=== PATIENT | male | born 1970 | race Caucasian/White ===

== ENCOUNTER 2016-11-10 09:08 | Day surgery (SDC) | payer MEDICARE, MEDICAID ==
[2016-11-10 09:58] LABS: PROTHROMBIN TIME 13.9 SEC (11.4-15.4)
[2016-11-10 09:59] LABS: PARTIAL THROMBOPLASTIN TIME 33.4 SEC (23.5-35.8)
[2016-11-10 12:29] LABS: GLUCOSE,CSF 54 mg/dL (40-70)
[2016-11-10 12:58] LABS: APPEARANCE ALL TUBES CLEAR; RBC AVERAGE 12.5; RBC DILUENT USED NONE USED; RBC SIDE 1 13; RBC SIDE 2 12
[2016-11-10 12:59] LABS: RBC DILUTION FACTOR 1; TOTAL RBC SQUARES COUNTED 225; WHITE BLOOD CELL,CSF 1 /uL (0-5)
--- NOTE | 2016-11-10 13:40 | RADIOLOGY REPORT (SQ) ---
EXAM DESCRIPTION: LUMBAR PUNCTURE; FLUORO/NEEDLE PLACEMENT/SPINE COMPLETED DATE/TIME: 11/10/2016 11:53 am REASON FOR STUDY: [place] G35 MULTIPLE SCLEROSIS Z79.01 MANAGER INVESTMENT (CURRENT) USE OF ANTICOAGULANTS COMPARISON: None. FLUOROSCOPY TIME: 6 seconds 1 digital fluoroscopic image saved to PACS. TECHNIQUE: Fluoroscopic guided lumbar puncture. LIMITATIONS: None. PROCEDURE: After written consent and assessment were obtained, the patient was brought into the fluo roscopy room and placed prone on the table. The patient's lower back was prepped in a sterile fashio n and an entry site was selected under live fluoroscopic guidance. The entry site was anesthetized wi th 6 mL of 1% lidocaine. A 22 gauge spinal needle was advanced through the skin and into the thecal s ac at the right paracentral L2-3 level. After approximately 8 ml was drained, the needle was removed and a sterile bandage was placed of the site. Specimens were sent to the lab for testing. A fluoros copic spot image was saved to PACS confirming level access. FINDINGS: Clear CSF Opening pressure 10 cm of water IMPRESSION: Lumbar puncture under fluoroscopy. No immediate complication. COMMENT: Patient medication list reviewed: Yes- Quality ID# [id number]:Eligible professional attests to doc umenting in the medical record they obtained, updated, or reviewed the patient's current medications. . Quality ID 145: Final reports for procedures using fluoroscopy that document radiation exposure loyda annie, or exposure time and number of fluorographic images (if radiation exposure indices are not avail able) TECHNICAL DOCUMENTATION: JOB ID: [id number] [employer]- All Rights Reserved
--- NOTE | 2016-11-10 13:40 | RADIOLOGY REPORT (SQ) ---
EXAM DESCRIPTION: LUMBAR PUNCTURE; FLUORO/NEEDLE PLACEMENT/SPINE COMPLETED DATE/TIME: 11/10/2016 11:53 am REASON FOR STUDY: [place] G35 MULTIPLE SCLEROSIS Z79.01 CAREER GUIDANCE COUNSELOR (CURRENT) USE OF ANTICOAGULANTS COMPARISON: None. FLUOROSCOPY TIME: 6 seconds 1 digital fluoroscopic image saved to PACS. TECHNIQUE: Fluoroscopic guided lumbar puncture. LIMITATIONS: None. PROCEDURE: After written consent and assessment were obtained, the patient was brought into the fluo roscopy room and placed prone on the table. The patient's lower back was prepped in a sterile fashio n and an entry site was selected under live fluoroscopic guidance. The entry site was anesthetized wi th 6 mL of 1% lidocaine. A 22 gauge spinal needle was advanced through the skin and into the thecal s ac at the right paracentral L2-3 level. After approximately 8 ml was drained, the needle was removed and a sterile bandage was placed of the site. Specimens were sent to the lab for testing. A fluoros copic spot image was saved to PACS confirming level access. FINDINGS: Clear CSF Opening pressure 10 cm of water IMPRESSION: Lumbar puncture under fluoroscopy. No immediate complication. COMMENT: Patient medication list reviewed: Yes- Quality ID# [id number]:Eligible professional attests to doc umenting in the medical record they obtained, updated, or reviewed the patient's current medications. . Quality ID 145: Final reports for procedures using fluoroscopy that document radiation exposure loyda annie, or exposure time and number of fluorographic images (if radiation exposure indices are not avail able) TECHNICAL DOCUMENTATION: JOB ID: [id number] [employer]- All Rights Reserved
[2016-11-10 13:54] VITALS: BP 108/66
[2016-11-12 06:38] LABS: ALBUMIN SERUM 3.7 g/dL (3.5-5.5); CSF IGG INDEX 0.4 (0.0-0.7); IGG SYNTHESIS RATE CSF -3.8 mg/day (-9.9 TO +3.3); IGG/ALBUMIN RATIO CSF 0.09 (0.00-0.25); IMMUNOGLOBULIN G CSF 3.4 mg/dL (0.0-8.6)
== END 2016-11-10 13:45 | disposition home or self-care (01) ==
LOC: RAD 09:08
PROVIDERS: ATTEND Specialist
PROC: 009U3ZX Drainage of Spinal Canal, Percutaneous Approach, Diagnostic (ICD-10-PCS; principal; 2016-11-10)
DX: G35 Multiple sclerosis (principal); Z79.01 Long term (current) use of anticoagulants
CPT/HCPCS: 36415; 62270; 77003; 82784; 82945; 83916; 84157; 85610; 85730; 87070; 87205; 89050

== ENCOUNTER 2017-11-07 20:50 | Emergency (ER) | payer MEDICARE, MEDICAID ==
--- NOTE | 2017-11-07 21:13 | ER Document Report ---
ED General - General Stated Complaint: PSYCH EVAL Time Seen by Provider: 11/07/17 21:01 Mode of Arrival: Medic Information source: Patient, Relative Cannot obtain history due to: Altered mental status Notes: 47-year-old male with history of alcohol abuse, methamphetamine abuse, presents via EMS after his brother found him altered, lying on the ground. Upon arrival there is no family at bedside and patient is unable to provide a history. TRAVEL OUTSIDE OF THE [place] IN LAST 30 DAYS: No - HPI Onset: Just prior to arrival - Related Data Allergies/Adverse Reactions: No Known Allergies Allergy (Verified 11/10/16 09:19) Past Medical History - General Information source: Relative, [facility] Records - Social History Smoking Status: Current Every Day Smoker Frequency of alcohol use: Heavy Drug Abuse: Methamphetamine Lives with: Spouse/Significant other Family History: Reviewed & Not Pertinent Patient has suicidal ideation: No Patient has homicidal ideation: No - Past Medical History Cardiac Medical History: Denies: Hx Coronary Artery Disease, Hx Heart Attack, Hx Hypertension Pulmonary Medical History: Reports: Hx Pneumonia Denies: Hx Asthma, Hx Bronchitis, Hx COPD, Hx Tuberculosis Neurological Medical History: Denies: Hx Cerebrovascular Accident, Hx Seizures Musculoskeltal Medical History: Denies Hx Arthritis Past Surgical History: Reports: Hx Orthopedic Surgery - right hand - Immunizations Immunizations up to date: Yes Hx Diphtheria, Pertussis, Tetanus Vaccination: Yes Review of Systems - Review of Systems -: Yes ROS unobtainable due to patient's medical condition Physical Exam - Vital signs Vitals: Temp Pulse Resp BP Pulse Ox 98.6 F 62 16 105/70 96 11/07/17 21:12 11/07/17 21:12 11/07/17 21:12 11/07/17 21:12 11/07/17 21:12 Interpretation: No: Hypotensive, Tachypneic, Febrile - Notes Notes: PHYSICAL EXAMINATION: GENERAL: Cachectic, somnolent but arousable. Incoherent speech. HEAD: Atraumatic, normocephalic. EYES: Pupils equal round and reactive to light, extraocular movements intact, sclera anicteric, conjunctiva are normal. ENT: Nares patent, oropharynx clear without exudates. Moist mucous membranes. NECK: Normal range of motion, supple without lymphadenopathy LUNGS: Breath sounds clear to auscultation bilaterally and equal. No wheezes rales or rhonchi. HEART: Regular rate and rhythm without murmurs ABDOMEN: Soft, nontender, nondistended abdomen. No guarding, no rebound. No masses appreciated. Musculoskeletal: Normal range of motion, no pitting or edema. No cyanosis. NEUROLOGICAL: GCS 13 PSYCH: Somnolent SKIN: Warm, Dry, normal turgor, no rashes or lesions noted. Course - Re-evaluation Re-evalutation: Laboratory 11/07/17 11/07/17 21:33 21:33 WBC 10.0 RBC 4.53 Hgb 14.0 Hct 39.6 MCV 87 MCH 30.9 MCHC 35.4 RDW 13.2 Plt Count 173 Seg Neutrophils % 75.0 Lymphocytes % 16.9 Monocytes % 7.0 Eosinophils % 0.6 Basophils % 0.5 Absolute Neutrophils 7.5 Absolute Lymphocytes 1.7 Absolute Monocytes 0.7 Absolute Eosinophils 0.1 Absolute Basophils 0.0 Sodium 146.0 H Potassium 3.5 L Chloride 108 H Carbon Dioxide 27 Anion Gap 11 BUN 43 H Creatinine 0.86 Est GFR ( Amer) > 60 Est GFR (Non-Af Amer) > 60 Glucose 116 H Calcium 9.3 Total Bilirubin 1.4 H Direct Bilirubin 0.3 Neonat Total Bilirubin Not Reportable Neonat Direct Bilirubin Not Reportable Neonat Indirect Bili Not Reportable AST 47 ALT 34 Alkaline Phosphatase 65 Creatine Kinase 515 H Total Protein 7.1 Albumin 4.4 Salicylates < 1.0 L Acetaminophen < 10 L Serum Alcohol < [address] 11/07/17 21:25 IMPRESSION: NORMAL BRAIN CT WITHOUT CONTRAST. EVIDENCE OF ACUTE STROKE: NO. 11/07/17 23:09 47-year-old male presents via EMS altered. Initially no family at bedside to provide history but the brother did present later who states that he is concerned for the patient's safety. He states that he knows that the patient has been using meth for 3 days now. He states that his sister found the patient on the ground, altered and with incoherent speech. He states that the patient's drug dealer was recently arrested and the patient has possession of all of his methamphetamine which he has been taking. Brother reports that the patient has been hallucinating. He is states he is afraid for himself and the patient. Patient had recently expressed wanting to "get help". Upon arrival vitals reviewed and within normal limits. Patient is cachectic, unkept. He is somnolent but easily arouses but cannot provide an appropriate history. he rambles starts cursing and falls to sleep. When asked he denies any illicit drug use. He denies suicidal and homicidal ideation. CT of the head was obtained and showed no acute process. CBC is without leukocytosis or anemia. CMP is unremarkable. CK is elevated and patient did receive IV fluids for this. Patient will be cleared for psychiatric evaluation when alert awake and oriented. repeat ck pending. Patient has given permission for us to speak to his brother Kevin Auguste at [phone] 11/08/17 01:54 11/08/17 01:58 11/08/17 02:00 - Vital Signs Vital signs: Temp Pulse Resp BP Pulse Ox 98.6 F 62 16 105/70 96 11/07/17 21:12 11/07/17 21:12 11/07/17 21:12 11/07/17 21:12 11/07/17 21:12 - Laboratory Result Diagrams: 11/07/17 21:33 11/07/17 21:33 Laboratory results interpreted by me: 11/07/17 21:33 Sodium 146.0 H Potassium 3.5 L Chloride 108 H BUN 43 H Glucose 116 H Total Bilirubin 1.4 H Creatine Kinase 515 H Salicylates < 1.0 L Acetaminophen < 10 L - Diagnostic Test Radiology reviewed: Image reviewed, Reports reviewed - EKG Interpretation by Me EKG shows normal: Sinus rhythm Rate: Normal Rhythm: NSR Discharge - Discharge Clinical Impression: Drug abuse, Elevated CK, Hallucination, Hypokalemia, Dehydration Condition: Good Referrals: LOCALMD,NO [Primary Care Provider] - Follow up as needed
[2017-11-07 21:43] LABS: ABSOLUTE EOSINOPHILS # (AUTO) 0.1 10^3/uL (0.0-0.6); ABSOLUTE LYMPHOCYTES (AUTO) 1.7 10^3/uL (0.5-4.7); ABSOLUTE MONOCYTES (AUTO) 0.7 10^3/uL (0.1-1.4); ABSOLUTE NEUT (AUTO) 7.5 10^3/uL (1.7-8.2); BASOPHILS % (AUTO) 0.5 % (0-2); EOSINOPHILS % (AUTO) 0.6 % (0-6); HEMATOCRIT 39.6 % (37.9-51.0); LYMPHOCYTES % (AUTO) 16.9 % (13-45); MEAN CORPUSCULAR HEMOGLOBIN 30.9 pg (27.0-33.4); MEAN CORPUSCULAR HGB CONC 35.4 g/dL (32.0-36.0); MEAN CORPUSCULAR VOLUME 87 fl (80-97); PLATELET COUNT 173 10^3/uL (150-450); RED BLOOD COUNT 4.53 10^6/uL (4.35-5.55); RED CELL DISTRIBUTION WIDTH 13.2 % (11.5-14.0); TOTAL CELLS COUNTED % (AUTO) 100 %
[2017-11-07 22:07] LABS: ALANINE AMINOTRANSFERASE 34 U/L (21-72); ALBUMIN 4.4 g/dL (3.5-5.0); ALKALINE PHOSPHATASE 65 U/L (38-126); ANION GAP 11 (5-19); ASPARTATE AMINO TRANSFERASE 47 U/L (17-59); BILIRUBIN,DIRECT 0.3 mg/dL (0.0-0.4); BILIRUBIN,TOTAL 1.4 mg/dL (0.2-1.3); BLOOD UREA NITROGEN 43 mg/dL (7-20); CALCIUM 9.3 mg/dL (8.4-10.2); CARBON DIOXIDE 27 mmol/L (22-30); CHLORIDE 108 mmol/L (98-107); CREATINE KINASE 515 U/L (55-170); GLUCOSE 116 mg/dL (75-110); POTASSIUM 3.5 mmol/L (3.6-5.0); TOTAL PROTEIN 7.1 g/dL (6.3-8.2)
[2017-11-07 22:11] LABS: ACETAMINOPHEN < 10 ug/mL (10-30); ALCOHOL < 10 mg/dL (NONE DETECTED); SALICYLATE < 1.0 mg/dL (2.0-20.0)
--- NOTE | 2017-11-07 22:11 | RADIOLOGY REPORT (SQ) ---
EXAM DESCRIPTION: CT HEAD WITHOUT COMPLETED DATE/TIME: 11/07/2017 10:02 pm REASON FOR STUDY: fall COMPARISON: None. TECHNIQUE: Axial images acquired through the brain without intravenous contrast. Images reviewed wi th bone, brain and subdural windows. Additional sagittal and coronal reconstructions were generated. Images stored on PACS. All CT scanners at this facility use dose modulation, iterative reconstruction, and/or weight based d osing when appropriate to reduce radiation dose to as low as reasonably achievable (ALARA). [facility]: Dose Right [facility]: CareDose [facility]: Dose Right [facility]: Teradose 4D [facility]: [employer] RADIATION DOSE: CT Rad equipment meets quality standard of care and radiation dose reduction techniq ues were employed. CTDIvol: 53.2 mGy. DLP: 1070 mGy-cm. mGy. LIMITATIONS: None. FINDINGS: VENTRICLES: Normal size and contour. CEREBRUM: No masses. No hemorrhage. No midline shift. No evidence for acute infarction. Normal gra y/white matter differentiation. No areas of low density in the white matter. CEREBELLUM: No masses. No hemorrhage. No alteration of density. No evidence for acute infarction. EXTRAAXIAL SPACES: No fluid collections. No masses. ORBITS AND GLOBE: No intra- or extraconal masses. Normal contour of globe without masses. CALVARIUM: No fracture. PARANASAL SINUSES: No fluid or mucosal thickening. SOFT TISSUES: No mass or hematoma. OTHER: No other significant finding. IMPRESSION: NORMAL BRAIN CT WITHOUT CONTRAST. EVIDENCE OF ACUTE STROKE: NO. COMMENT: Quality ID # [id number]: Final reports with documentation of one or more dose reduction techniques (e.g., Automated exposure control, adjustment of the mA and/or kV according to patient size, use of iterative reconstruction technique) TECHNICAL DOCUMENTATION: JOB ID: [id number] [employer]- All Rights Reserved Reading location - IP/workstation name: [email or web address]
[2017-11-07] MEDS: NORMAL SALINE 1000 ML 1,000 ML IV PRN ×2 (22:36→22:37)
[2017-11-08] MEDS ORDERED: NORMAL SALINE 1000 ML 1,000 ML IV ONE (00:33)
[2017-11-08] MEDS ORDERED: POTASSIUM CHLORIDE 10 MEQ CAPSULE.ER PO ONE (01:53)
[2017-11-08 04:23] LABS: APPEARANCE,URINE CLEAR; BILIRUBIN,URINE NEGATIVE (NEGATIVE); COLOR,URINE YELLOW; GLUCOSE, URINE NEGATIVE (NEGATIVE); KETONES,URINE NEGATIVE (NEGATIVE); LEUKOCYTE ESTERASE,URINE NEGATIVE (NEGATIVE); NITRITE,URINE NEGATIVE (NEGATIVE); PROTEIN,URINE NEGATIVE (NEGATIVE); URINE SPECIFIC GRAVITY 1.023
[2017-11-08 04:46] LABS: URINE BARBITURATES SCREEN NEGATIVE; URINE BENZODIAZEPINES SCREEN UNCONFIRMED POSITIVE; URINE COCAINE SCREEN NEGATIVE; URINE MARIJUANA (THC) SCREEN UNCONFIRMED POSITIVE; URINE METHADONE SCREEN NEGATIVE; URINE PHENCYCLIDINE SCREEN NEGATIVE
--- NOTE | 2017-11-08 07:52 | EKG REPORT ---
SEVERITY:- NORMAL ECG - SINUS RHYTHM : Confirmed by: Darnell Brumfield MD 08-Nov-2017 07:51:16
--- NOTE | 2017-11-08 09:34 | ER Document Report ---
Doctor's Note Notes: 11/08/17 09:32 I saw and evaluated the patient. Vitals stable. Patient has no complaints at this time. No issues over night. Patient denies suicidal or homicidal ideations. No delusions or hallucinations. Patient declines treatment for substance abuse at this time. I will discuss plan of care with behavioral health.
--- NOTE | 2017-11-08 10:29 | PSYCHOLOGICAL NOTE ---
Psych Note - Psych Note Psych Note: Met with Patient with Dr. Page. Patient denied taking any methamphetamine, rather "someone left it at my house and it was in my hand, so I buried it in my backyard and put it down my septic tank" Patient reported he took 3 adderall pills and denied he took any valium in the last few days. He denied being "aggressive" but admitted to "erratic behavior."Patient tended to perseverate on the pain in his left knee and was not very interested in answering directed questions. He reported he was "kicked out of pain management with Dr. Peña because I was short 2 pills" and reportedly was scheduled to see another pain management doctor on the but could not recall who that doctor was. He indicated he received his benzodiazepines from Dr. Henriquez but it was just a few months ago before he closed his office and was given refills. He indicated he last took his valium a few days ago but was now out of his medication. He stated Fadumo Hidalgo is his outpatient provider and prescribes his Adderall and he last saw her some time ago but continues to have medicine which he takes 3 times per day. Review of his [place] Controlled Substance Registry Report reveals he was prescribed Adderall twice per day, 60 pills / 30 day supply on 10/29/2017 and Valium 5 mg 90 pills / 30 day supply on 10/19/2017 by Fadumo Hidalgo. Previous to that date, he was again prescribed Adderall 20 mg 60 pills / 30 day supply on 09/30/2017 by Fadumo Hidalgo but Oxycodone HCL 10 mg 20 pills / 5 day supply on 09/25/[address] Alfredo Gtz, and the valium again by Fadumo Hidalgo on 2017 90 pills/ 30 day supply. Earlier in the year, around July 2017, the Patient received Oxycodone HCL 10 mg 120 pills / 30 day supply going back to 2015. Prior to that the report shows a history of significant opioid abuse with Opana, Oxycodone, Oxymorphone, etc to at least 2013. Patient denied he abused or misused his prescription medications or used illegal drugs. He denied any inpatient psychiatric care and denied a history of suicide or suicide attempts, or inpatient rehabilitation. 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 Brother stated he has a Neurologist that he follows with but still unsure what the disorder is. He has been prescribed Opioids and Benzodiazepines since age 18, and up to 240 pills of Roxycodone per month. Brother reported the Patient has been to drug treatment / rehabilitation at least twice in [place] but unsure. He advised he wants his brother to get help and understands the difficulty in getting someone to treatment when they don't want to go. He stated his brother unequivocally has an opioid and benzo addiction problem and now fears he has a meth problem. He stated he knows his brother was a meth binge because his brother told him his dealer went to [facility] and left his product to him (the patient). Patient was oriented to person, place, time, nad circumstance. Mood was calm and compliant. Affect was blunted. Patient denied suicidal / homicidal ideation , intent or plan. He denied auditory / visual hallucinations and there was no evidence of delusions. Thought processes were organized, linear, and logical. Conversational speech was low in tone, slow in rate, and normal prosody. Intellectual abilities were estimated within the average range. Eye contact was fair. Attention and concentration was fair. Insight, judgment, and impulse control was poor. Diagnoses: 1. Methamphetamine dependence 2. Opioid Dependence 3. Benzodiazepine Dependence Impression / Plan: Patient is recommended for rescind of IVC as he is no longer hallucinating and is in control of his behavior. His mental status has cleared and he is cleared from acute psychiatric services. Patient denied wanting any services from the hospital except pain medication and refused any type of drug treatment or detox referral. He indicated he did not have a drug abuse issue. Patient was provided outpatient drug treatment information despite his denials and the same information was provided to his brother. Patient was also referred back to his outpatient provider, Fadumo Hidalgo for ongoing care and treatment. ED Physician in agreement with recommendation and disposition.
[2017-11-08 13:08] VITALS: BP 104/77
== END 2017-11-08 13:08 | disposition home or self-care (01) ==
LOC: ER 20:50
DX: F11.20 Opioid dependence, uncomplicated (principal); F15.20 Other stimulant dependence, uncomplicated; F13.20 Sedative, hypnotic or anxiolytic dependence, uncomplicated; F10.10 Alcohol abuse, uncomplicated; F17.210 Nicotine dependence, cigarettes, uncomplicated; E86.0 Dehydration; E87.6 Hypokalemia
CPT/HCPCS: 93005; 99285; 96360; 96361; 36415; 80307 ×4; 82550; 85025; 80053; 81001; 70450; 93010; J7030 ×2; A9270

== ENCOUNTER 2018-02-04 12:08 | Emergency (ER) | payer MEDICARE, MEDICAID ==
[2018-02-04 12:17] VITALS: BP 107/71
--- NOTE | 2018-02-04 12:24 | ER Document Report ---
ED Medical Screen (RME) - General Chief Complaint: Testicular Pain Stated Complaint: ABDOMINAL PAIN Time Seen by Provider: 02/04/18 12:19 Notes: 47-year-old male patient long history of drug abuse, chronic pain management now on Suboxone, Valium. Was seen by his PCP for testicular pain and swelling, started doxycycline yesterday. Since the emergency room today for further evaluation and ultrasound. I have greeted and performed a rapid initial assessment of this patient. A comprehensive ED assessment and evaluation of the patient, analysis of test results and completion of the medical decision making process will be conducted by additional ED providers. TRAVEL OUTSIDE OF THE [place] IN LAST 30 DAYS: No - Related Data Allergies/Adverse Reactions: No Known Allergies Allergy (Verified 02/04/18 12:10) Past Medical History - Social History Chew tobacco use (# tins/day): No Frequency of alcohol use: None Drug Abuse: None - Past Medical History Cardiac Medical History: Denies: Hx Coronary Artery Disease, Hx Heart Attack, Hx Hypertension Pulmonary Medical History: Reports: Hx Pneumonia Denies: Hx Asthma, Hx Bronchitis, Hx COPD, Hx Tuberculosis Neurological Medical History: Denies: Hx Cerebrovascular Accident, Hx Seizures Renal/ Medical History: Denies: Hx Peritoneal Dialysis Musculoskeltal Medical History: Denies Hx Arthritis Past Surgical History: Reports: Hx Orthopedic Surgery - right hand - Immunizations Immunizations up to date: Yes Hx Diphtheria, Pertussis, Tetanus Vaccination: Yes Physical Exam - Vital signs Vitals: Temp Pulse Resp BP Pulse Ox 97.8 F 60 18 107/71 97 02/04/18 12:16 02/04/18 12:16 02/04/18 12:16 02/04/18 12:16 02/04/18 12:16 Course - Vital Signs Vital signs: Temp Pulse Resp BP Pulse Ox 97.8 F 60 18 107/71 97 02/04/18 12:16 02/04/18 12:16 02/04/18 12:16 02/04/18 12:16 02/04/18 12:16 Doctor's Discharge - Discharge Referrals: LOCALMD,NO [Primary Care Provider] - Follow up as needed
[2018-02-04] MEDS ORDERED: KETOROLAC TROMETHAMINE INJ/PF 30 MG/1 ML SDV IV ONE (12:43)
[2018-02-04] MEDS ORDERED: ONDANSETRON HCL INJ/PF 4 MG/2 ML SDV IV ONE (12:43)
[2018-02-04] MEDS ORDERED: NORMAL SALINE 1000 ML 1,000 ML IV ONE (12:44)
--- NOTE | 2018-02-04 12:47 | ER Document Report ---
ED GI/ - General Chief Complaint: Testicular Pain Stated Complaint: ABDOMINAL PAIN Time Seen by Provider: 02/04/18 12:19 Mode of Arrival: Ambulatory Information source: Patient Notes: Chief complaint: abdominal pain: History of complain:( obtained from----patient) 47 years old male with a history of drug abuse currently on methadone program as well as smoking cannabis presents today with bilateral scrotal pain as well as right inguinal pain. Been going on for the last 2-3 days more than usual. No injuries. Denies any urethral discharge, denies any fever chills, denies any nausea vomiting. Onset: Gradual Duration: Last 2-3 days Severity: Moderate to severe Quality: Sharp Context: As above Exacerbating factor and relieving factors: Standing and walking REVIEW OF SYSTEMS: CONSTITUTIONAL : Denies fever, chills, or sweats. Denies recent illness. EENT: Denies eye, ear, throat, or mouth pain or symptoms. Denies nasal or sinus congestion or discharge. Denies throat, tongue, or mouth swelling or difficulty swallowing. CARDIOVASCULAR: Denies chest pain. Denies palpitations or racing or irregular heart beat. Denies ankle edema. RESPIRATORY: Denies cough, cold, or chest congestion. Denies shortness of breath, difficulty breathing, or wheezing. GASTROINTESTINAL: Denies distention. Denies nausea, vomiting, or diarrhea. Denies blood in vomitus, stools, or per rectum. Denies black, tarry stools. Denies constipation. GENITOURINARY: Denies difficulty urinating, painful urination, burning, frequency, blood in urine, or discharge. FEMALE GENITOURINARY: Denies vaginal bleeding, heavy or abnormal periods, irregular periods. Denies vaginal discharge or odor. MUSCULOSKELETAL: Denies back or neck pain or stiffness. Denies joint pain or swelling. SKIN: Denies rash, lesions or sores. HEMATOLOGIC : Denies easy bruising or bleeding. LYMPHATIC: Denies swollen, enlarged glands. NEUROLOGICAL: Denies confusion or altered mental status. Denies passing out or loss of consciousness. Denies dizziness or lightheadedness. Denies headache. Denies weakness or paralysis or loss of use of either side. Denies problems with gait or speech. Denies sensory loss, numbness, or tingling. Denies seizures. PSYCHIATRIC: Denies anxiety or stress. Denies depression, suicidal ideation, or homicidal ideation. ALL OTHER SYSTEMS REVIEWED AND NEGATIVE. PHYSICAL EXAMINATION: GENERAL: Well-appearing, well-nourished and in moderate acute distress. HEAD: Atraumatic, normocephalic. EYES: Pupils equal round and reactive to light, extraocular movements intact, conjunctiva are normal. ENT: Nares patent, oropharynx clear without exudates. Moist mucous membranes. NECK: Normal range of motion, supple without lymphadenopathy LUNGS: Breath sounds clear to auscultation bilaterally and equal. No wheezes rales or rhonchi. HEART: Regular rate and rhythm without murmurs ABDOMEN: Soft, nontender, nondistended abdomen. No guarding, no rebound. No masses appreciated. But right inguinal hernia noted which was reducible. Examination of the scrotum-appears normal no erythema noted no swelling. Examination of the testicles. No obvious epididymal tenderness noted but scrotal tenderness which is questionable. Female : deferred Musculoskeletal: Normal range of motion, no pitting or edema. No cyanosis. NEUROLOGICAL: Cranial nerves grossly intact. Normal speech, normal gait. Normal sensory, motor exams PSYCH: Normal mood, normal affect. SKIN: Warm, Dry, normal turgor, no rashes or lesions noted. Dictation was performed using [employer] voice recognition software TRAVEL OUTSIDE OF THE [place] IN LAST 30 DAYS: No - HPI Notes: 02/04/18 12:46 Dictated - Related Data Allergies/Adverse Reactions: No Known Allergies Allergy (Verified 02/04/18 12:10) Past Medical History - Social History Smoking Status: Current Every Day Smoker Chew tobacco use (# tins/day): No Frequency of alcohol use: None Drug Abuse: None Lives with: Family Family History: Reviewed & Not Pertinent Patient has suicidal ideation: No Patient has homicidal ideation: No - Past Medical History Cardiac Medical History: Denies: Hx Coronary Artery Disease, Hx Heart Attack, Hx Hypertension Pulmonary Medical History: Reports: Hx Pneumonia Denies: Hx Asthma, Hx Bronchitis, Hx COPD, Hx Tuberculosis Neurological Medical History: Denies: Hx Cerebrovascular Accident, Hx Seizures Renal/ Medical History: Denies: Hx Peritoneal Dialysis Musculoskeletal Medical History: Denies Hx Arthritis Past Surgical History: Reports: Hx Orthopedic Surgery - right hand - Immunizations Immunizations up to date: Yes Hx Diphtheria, Pertussis, Tetanus Vaccination: Yes Review of Systems - Review of Systems Notes: Dictated Physical Exam - Vital signs Vitals: Temp Pulse Resp BP Pulse Ox 97.8 F 60 18 107/71 97 02/04/18 12:16 02/04/18 12:16 02/04/18 12:16 02/04/18 12:16 02/04/18 12:16 - Notes Notes: Dictated Course - Vital Signs Vital signs: Temp Pulse Resp BP Pulse Ox 97.8 F 60 18 107/71 97 02/04/18 12:16 02/04/18 12:16 02/04/18 12:16 02/04/18 12:16 02/04/18 12:16 - Laboratory Result Diagrams: 02/04/18 13:05 02/04/18 14:20 Laboratory results interpreted by me: 02/04/18 02/04/18 02/04/18 12:26 13:05 14:20 RBC 4.33 L Total Protein 6.1 L Urine Urobilinogen 2.0 H - Diagnostic Test Radiology reviewed: Reports reviewed - 1. Testicular ultrasound reported by radiologist as normal 2. Abdominal x-ray reported by radiologist as normal Discharge - Discharge Clinical Impression: Testicular pain Abdominal pain Qualifiers: Abdominal location: generalized Qualified Code(s): R10.84 - Generalized abdominal pain Condition: Fair Disposition: HOME, SELF-CARE Instructions: Abdominal Pain ([facility]) Prescriptions: Ketorolac Tromethamine [Toradol 10 mg Tablet] 10 mg PO Q6HP PRN #14 tablet PRN Reason: Dicyclomine HCl [Bentyl 10 mg Capsule] 1 cap PO TID #30 cap Lactulose 20 gm PO BID #60 ml Referrals: LOCALMD,NO [NO LOCAL MD] - Follow up as needed
[2018-02-04 12:50] LABS: APPEARANCE,URINE CLEAR; BILIRUBIN,URINE NEGATIVE (NEGATIVE); COLOR,URINE YELLOW; GLUCOSE, URINE NEGATIVE (NEGATIVE); KETONES,URINE NEGATIVE (NEGATIVE); LEUKOCYTE ESTERASE,URINE NEGATIVE (NEGATIVE); NITRITE,URINE NEGATIVE (NEGATIVE); PROTEIN,URINE NEGATIVE (NEGATIVE); URINE SPECIFIC GRAVITY 1.011
[2018-02-04 13:46] LABS: ABSOLUTE EOSINOPHILS # (AUTO) 0.5 10^3/uL (0.0-0.6); ABSOLUTE LYMPHOCYTES (AUTO) 1.5 10^3/uL (0.5-4.7); ABSOLUTE MONOCYTES (AUTO) 0.4 10^3/uL (0.1-1.4); ABSOLUTE NEUT (AUTO) 6.6 10^3/uL (1.7-8.2); BASOPHILS % (AUTO) 0.5 % (0-2); EOSINOPHILS % (AUTO) 5.9 % (0-6); HEMATOCRIT 38.9 % (37.9-51.0); HEMOGLOBIN 13.7 g/dL (13.5-17.0); LYMPHOCYTES % (AUTO) 16.7 % (13-45); MEAN CORPUSCULAR HEMOGLOBIN 31.5 pg (27.0-33.4); MEAN CORPUSCULAR HGB CONC 35.1 g/dL (32.0-36.0); MEAN CORPUSCULAR VOLUME 90 fl (80-97); MONOCYTES % (AUTO) 4.6 % (3-13); PLATELET COUNT 180 10^3/uL (150-450); RED BLOOD COUNT 4.33 10^6/uL (4.35-5.55); RED CELL DISTRIBUTION WIDTH 13.6 % (11.5-14.0); SEGMENTED NEUTROPHILS % (AUTO) 72.3 % (42-78); TOTAL CELLS COUNTED % (AUTO) 100 %; WHITE BLOOD COUNT 9.1 10^3/uL (4.0-10.5)
--- NOTE | 2018-02-04 14:39 | RADIOLOGY REPORT (SQ) ---
EXAM DESCRIPTION: CT ABD/PELVIS WITH IV ONLY COMPLETED DATE/TIME: 02/04/2018 1:45 pm REASON FOR STUDY: Right inguinal hernia rule out strangulation right and left lower abdominal pain. COMPARISON: None. TECHNIQUE: CT scan of the abdomen and pelvis performed using helical scanning technique with dynamic intravenous contrast injection. No oral contrast. Images reviewed with lung, soft tissue, and bone windows. Reconstructed coronal and sagittal MPR images reviewed. Delayed images for evaluation of the urinary system also acquired. All images stored on PACS. All CT scanners at this facility use dose modulation, iterative reconstruction, and/or weight based d osing when appropriate to reduce radiation dose to as low as reasonably achievable (ALARA). [facility]: Dose Right [facility]: CareDose [facility]: Dose Right [facility]: Teradose 4D [facility]: [employer] CONTRAST TYPE AND DOSE: contrast/concentration: Isovue 350.00 mg/ml; Total Contrast Delivered: 80.0 ml; Total Saline Delivered: 68.0 ml RENAL FUNCTION: Not available. RADIATION DOSE: CT Rad equipment meets quality standard of care and radiation dose reduction techniq ues were employed. CTDIvol: 4.9 - 5.4 mGy. DLP: 590 mGy-cm.. LIMITATIONS: None. FINDINGS: LOWER CHEST: Chronic scarring in lung bases. LIVER: No abnormality. SPLEEN: No abnormality. PANCREAS: No abnormality. GALLBLADDER: No abnormality. ADRENAL GLANDS: No abnormality. RIGHT KIDNEY AND URETER: No abnormality. LEFT KIDNEY AND URETER: No abnormality. AORTA AND VESSELS: No abnormality. RETROPERITONEUM: No retroperitoneal adenopathy, hemorrhage or masses. BOWEL AND PERITONEAL CAVITY: Marked constipation. APPENDIX: Normal. PELVIS: Urinary bladder: No abnormality. Prostate and seminal vesicles: No abnormality. ABDOMINAL WALL: No abnormality. BONES: No abnormality. IMPRESSION: NO SIGNIFICANT OR ACUTE FINDING IN THE ABDOMEN OR PELVIS ON CT SCAN WITH IV CONTRAST. TECHNICAL DOCUMENTATION: JOB ID: [id number] Quality ID # [id number]: Final reports with documentation of one or more dose reduction techniques (e.g., Au tomated exposure control, adjustment of the mA and/or kV according to patient size, use of iterative reconstruction technique) 2010 [employer]- All Rights Reserved Reading location - IP/workstation name: [email or web address]
[2018-02-04 14:50] LABS: ALANINE AMINOTRANSFERASE 30 U/L (21-72); ALBUMIN 3.6 g/dL (3.5-5.0); ALKALINE PHOSPHATASE 65 U/L (38-126); ANION GAP 8 (5-19); ASPARTATE AMINO TRANSFERASE 37 U/L (17-59); BILIRUBIN,DIRECT 0.3 mg/dL (0.0-0.4); BILIRUBIN,TOTAL 0.5 mg/dL (0.2-1.3); BLOOD UREA NITROGEN 19 mg/dL (7-20); CALCIUM 8.8 mg/dL (8.4-10.2); CARBON DIOXIDE 28 mmol/L (22-30); CHLORIDE 104 mmol/L (98-107); GLUCOSE 89 mg/dL (75-110); POTASSIUM 4.9 mmol/L (3.6-5.0); SODIUM 139.9 mmol/L (137-145); TOTAL PROTEIN 6.1 g/dL (6.3-8.2)
--- NOTE | 2018-02-04 15:00 | RADIOLOGY REPORT (SQ) ---
EXAM DESCRIPTION: U/S SCROTUM W/DOPPLER COMPLETED DATE/TIME: 02/04/2018 2:45 pm REASON FOR STUDY: Bilateral testicular pain with swelling COMPARISON: None. TECHNIQUE: Static and realtime lei scale imaging of the scrotum and testes. Selected color Doppler and spectral images recorded to document blood flow. LIMITATIONS: None. FINDINGS: RIGHT: TESTICLE: Normal size. Normal echotexture. Normal blood flow. No mass. EPIDIDYMIS: Normal. HYDROCELE OR VARICOCELE: No. HERNIA OR EXTRA-TESTICULAR MASS: No. OTHER: No other significant finding. LEFT: TESTICLE: Normal size. Normal echotexture. Normal blood flow. No mass. EPIDIDYMIS: Normal. HYDROCELE OR VARICOCELE: No. HERNIA OR EXTRA-TESTICULAR MASS: No. OTHER: No other significant finding. IMPRESSION: NORMAL SCROTAL ULTRASOUND. NO EVIDENCE OF TESTICULAR MASS OR TORSION. TECHNICAL DOCUMENTATION: JOB ID: [id number] [employer]- All Rights Reserved Reading location - IP/workstation name: [email or web address]
== END 2018-02-04 15:30 | disposition home or self-care (01) ==
LOC: ER 12:08
DX: N50.812 Left testicular pain (principal); N50.811 Right testicular pain; R10.84 Generalized abdominal pain; R10.31 Right lower quadrant pain; F17.200 Nicotine dependence, unspecified, uncomplicated
CPT/HCPCS: 99284; 96361; 96374; 96375; 36415; 85025; 80053; 81001; 76870; 93976; 74177; J2405; J1885; J7030

== ENCOUNTER 2018-02-10 12:28 | Emergency (ER) | payer MEDICARE, MEDICAID ==
[2018-02-10] MEDS ORDERED: CIPROFLOXACIN HCL/DEXAMETH OTIC DROP 7.5 ML AD ONE (14:08)
[2018-02-10] MEDS ORDERED: OXYCODONE-ACETAMINOPHEN 5-325 MG TABLET PO ONE (14:08)
--- NOTE | 2018-02-10 14:17 | ER Document Report ---
HPI - HPI Pain Level: 5 Notes: Patient is a 47-year-old male who presents with chief complaint of left ear pain over the last 6 days. Patient reports pain and drainage. Denies any trauma Or fever. - CONSTITUTIONAL Constitutional: REPORTS: Fever. DENIES: Chills - EENT EENT: REPORTS: Ear Pain - NEURO Neurology: REPORTS: Headache, Dizzinesss / Vertigo Past Medical History - General Information source: Patient - Social History Smoking Status: Current Every Day Smoker Chew tobacco use (# tins/day): No Frequency of alcohol use: None Drug Abuse: None Family History: Reviewed & Not Pertinent Patient has suicidal ideation: No Patient has homicidal ideation: No - Past Medical History Cardiac Medical History: Denies: Hx Coronary Artery Disease, Hx Heart Attack, Hx Hypertension Pulmonary Medical History: Reports: Hx Pneumonia Denies: Hx Asthma, Hx Bronchitis, Hx COPD, Hx Tuberculosis Neurological Medical History: Denies: Hx Cerebrovascular Accident, Hx Seizures Renal/ Medical History: Denies: Hx Peritoneal Dialysis Musculoskeletal Medical History: Denies Hx Arthritis Past Surgical History: Reports: Hx Orthopedic Surgery - right hand - Immunizations Immunizations up to date: Yes Hx Diphtheria, Pertussis, Tetanus Vaccination: Yes Vertical Provider Document - CONSTITUTIONAL Notes: PHYSICAL EXAMINATION: GENERAL: Well-appearing, well-nourished and in no acute distress. HEAD: Atraumatic, normocephalic. EYES: Pupils equal round extraocular movements intact, conjunctiva are normal. ENT: Nares patent, edema and erythema noted to left ear canal, tympanic membrane intact. Normal right ear exam. NECK: Normal range of motion LUNGS: No respiratory distress Musculoskeletal: Normal range of motion NEUROLOGICAL: Normal speech, normal gait. PSYCH: Normal mood, normal affect. SKIN: Warm, Dry, normal turgor, no rashes or lesions noted. - INFECTION CONTROL TRAVEL OUTSIDE OF THE [place] IN LAST 30 DAYS: No Course - Re-evaluation Re-evalutation: 02/10/18 14:14 Examination consistent with otitis externa. - Vital Signs Vital signs: Temp Pulse Resp BP Pulse Ox 98.3 F 70 16 92/66 L 96 02/10/18 12:55 02/10/18 12:55 02/10/18 12:55 02/10/18 12:55 02/10/18 12:55 Discharge - Discharge Clinical Impression: Otitis externa Qualifiers: Otitis externa type: unspecified type Chronicity: acute Laterality: left Qualified Code(s): H60.502 - Unspecified acute noninfective otitis externa, left ear Condition: Stable Disposition: HOME, SELF-CARE Additional Instructions: OTITIS EXTERNA: You have otitis externa -- an infection of the outer ear canal. This can be very painful. It's sometimes called "swimmer's ear," because it often occurs after prolonged water exposure. Many things, such as earwax and dirt in the ear, can contribute to it. The usual treatment is antibiotic/antiinflammatory ear drops. Occasionally , a wick will be placed in the ear to draw in the medicine. If the infection is severe, an oral antibiotic may be prescribed. Pain medication is often needed. Avoid getting water in the ear. Outer ear infections often take longer to heal than you might expect. Some tenderness and ache in the ear may persist for about two weeks. See your physician if you fail to improve as expected. Call the doctor at once if you develop fever, increasing swelling (particularly if it makes your ear "poke out"), severe headache, stiff neck, or decreased hearing. USE OF EAR DROPS: Your ear drops won't do much good if they don't get all the way in. To help the ear drops penetrate all the way to the ear drum, use the following technique. If you encounter problems of any kind, notify the physician. (1) Lay your head sideways on a pillow. (2) Place the dropper tip just barely inside the ear canal, almost touching the bottom side of the canal. The liquid is tolerated better on the bottom of the canal. (3) Squeeze out the appropriate amount of medicine, and remove the dropper. (4) Grab the back of the ear (just behind the ear canal) between your index finger and thumb. (5) Tug up, then let the ear drop back. Repeat several times. This pumps the medicine down. (6) Wait five minutes, then place a cotton ball in the ear canal to catch and hold the medicine. USING EAR DROPS WITH A WICK: A wick may be placed in your ear. This keeps the medicine in constant contact with the ear canal. You'll need to put fresh medicine into the wick. Follow these instructions. If you encounter problems of any kind, notify the physician. (1) Lay your head sideways on a pillow. (2) Place the dropper tip so it's almost touching the wick. (3) Squeeze out the appropriate amount of medicine. (4) Wait a minute for the medicine to soak in before sitting up. (5) Wipe away any extra medicine from your ear. CIPROFLOXACIN: You have been given an antibacterial agent, ciprofloxacin (Cipro). This medicine is not related to the penicillins, sulfas, cephalosporins, or tetracyclines. It is often given to patients who are allergic to these drugs. It has been chosen for you either because other drugs are not appropriate, or because of the nature of your problem. Cipro should not be taken with antacids, as these can decrease its effectiveness. It can be taken without regard to meals. CIPRO SHOULD NOT BE TAKEN BY CHILDREN, NURSING WOMEN, OR WOMEN. Although Cipro is usually well-tolerated, common side effects can include nausea and diarrhea. Contact your doctor if you experience any unusual symptoms while on this medication, such as joint pain or swelling, shortness of breath, wheezing, faintness, or hives. USE OF ACETAMINOPHEN (Tylenol): Acetaminophen may be taken for pain relief or fever control. It's much safer than aspirin, offering a wider range of "safe" dosages. It is safe during . Some brand names are Tylenol, Panadol, Datril, Anacin 3, Tempra, and Liquiprin. Acetaminophen can be repeated every four hours. The following are maximum recommended dosages: WEIGHT Dose (LBS.) >89 pounds or adults 650 mg to 900 mg every 4 hours, not to exceed 4, 000mg per day FOLLOW-UP CARE: If you have been referred to a physician for follow-up care, call the physician s office for an appointment as you were instructed or within the next two days. If you experience worsening or a significant change in your symptoms, notify the physician immediately or return to the Emergency Department at any time for re-evaluation. Apply 4 drops of Ciprodex to the left ear twice daily. Stay out of the water. Take Tylenol or ibuprofen for fever and pain. Referrals: CLIVE WHITE MD [Primary Care Provider] - Follow up as needed
[2018-02-10 14:48] VITALS: BP 107/64
== END 2018-02-10 14:48 | disposition home or self-care (01) ==
LOC: ER 12:28
DX: H60.502 Unspecified acute noninfective otitis externa, left ear (principal); F17.200 Nicotine dependence, unspecified, uncomplicated
CPT/HCPCS: 99283; J3490